=== PATIENT | female | born 2000 | race Caucasian/White ===

== ENCOUNTER → 2023-11-25 07:53 | Outpatient (REF) | payer OTHER, SELFPAY ==
[2023-11-25 09:59] LABS: Lithium 1.1 mmol/L (0.6-1.2)
== END ==
LOC: REG 07:53
PROVIDERS: ATTENDING PHYSICIAN Psychiatry & Neurology Psychiatry; FAMILY PHYSICIAN Physician Assistant Medical
DX: F31.2 Bipolar disorder, current episode manic severe with psychotic features (principal)
CPT/HCPCS: 36415; 80178